=== PATIENT | male | born 1960 | race Caucasian/White ===

== ENCOUNTER 2021-01-07 19:10 | Day surgery (SDC) | payer MEDICAID ==
[2021-01-07] MEDS ORDERED: Sodium Chloride 0.9% 10 ML Syringe FLUSH PRN ×2 (19:25→20:06)
[2021-01-07] MEDS ORDERED: Sodium Chloride 0.9% 2.5 ML Syringe FLUSH PRN ×2 (19:25→20:06)
[2021-01-07] MEDS ORDERED: Sodium Chloride 0.9% 10 ML SDV IV PRN (20:06)
[2021-01-07] MEDS ORDERED: Lactated Ringers 1,000 ML IV SCH (20:15)
--- NOTE | 2021-01-07 20:15 | PCM.HP.2 ---
H&P History of Present Illness - General Date of Service: 01/07/21 Admit Problem/Dx: Admission Diagnosis/Problem Admission Diagnosis/Problem Food impaction of esophagus Source of Information: Patient History Limitations: Reports: No Limitations - History of Present Illness Initial Comments - Free Text/Narative: Patient is a 60 year old male who presented with a food impaction of the esophagus. He was eating a steak sandwich yesterday when he felt a piece of the food become stuck in his esophagus. He states that he has been having progressively worsening dysphagia for some time now. The food always "goes down or I throw it up." It is dysphagia to food and not liquids. 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 He denies ever having issues with heartburn. Throat Pain Score (Numeric/FACES): 3 - Related Data Allergies/Adverse Reactions: Allergies Allergy/AdvReac Type Severity Reaction Status Date / Time bee pollen Allergy Hives Verified 01/07/21 19:23 egg Allergy Airway Verified 01/07/21 20:04 Tightness Penicillins Allergy Airway Verified 01/07/21 19:23 Tightness Poultry Allergy Airway Verified 01/07/21 19:23 Tightness Home Medications: Home Meds . [No Known Home Meds] 01/07/21 [History] Past Medical History Respiratory History: Reports: Asthma - Past Surgical History GI Surgical History: Reports: Colonoscopy Social & Family History - Family History Family Medical History: No Pertinent Family History - Tobacco Use Tobacco Use Status *Q: Never Tobacco User Second Hand Smoke Exposure: No - Alcohol Use Alcohol Use in Last Twelve Months: No Alcohol Use Frequency: Not Used in Over 1 Year Alcohol Use Comment: History of alcohol abuse - Recreational Drug Use Recreational Drug Use: No H&P Review of Systems - Review of Systems: Review Of Systems: Comprehensive ROS is negative, except as noted in HPI. Exam - Exam Exam: See Below - Vital Signs Vital Signs: Last Vital Signs Temp 35.8 C L 01/07/21 19:16 Pulse 82 01/07/21 19:16 Resp 14 01/07/21 19:16 BP 146/94 H 01/07/21 19:16 Pulse Ox 98 01/07/21 19:16 Weight: 65.771 kg - Exam General: Alert, Oriented HEENT: Conjunctiva Clear, Nares Patent, Posterior Pharynx Clear Neck: Supple, Trachea Midline Lungs: Clear to Auscultation, Normal Respiratory Effort Cardiovascular: Regular Rate, Regular Rhythm GI/Abdominal Exam: Soft, Non-Tender, No Distention, No Mass Sepsis Event Note - Focused Exam Vital Signs: Vital Signs Temp Pulse Resp BP Pulse Ox 01/07/21 19:16 35.8 C L 82 14 146/94 H 98 - Problem List (1) Food impaction of esophagus SNOMED Code(s): 357634279 ICD Code: T18.128A - FOOD IN ESOPHAGUS CAUSING OTHER INJURY, INITIAL ENCOUNTER Status: Acute Current Visit: Yes Problem List Initiated/Reviewed/Updated: Yes Orders Last 24hrs: Active Orders 24 hr Category Date Time Status Patient Status [ADT] Routine ADT 01/07/21 20:06 Ordered Antiembolic Devices [RC] PER UNIT ROUTINE Care 01/07/21 20:07 Ordered Verify Patient Consent Obtain [RC] ASDIRECTED Care 01/07/21 20:06 Ordered CBC W/O DIFF,HEMOGRAM [HEME] Stat Lab 01/07/21 20:06 Ordered CMP [COMPREHENSIVE METABOLIC PN,CMP] [CHEM] Stat Lab 01/07/21 20:06 Ordered CORONAVIRUS COVID-19 LESLY [MOLEC] Stat Lab 01/07/21 19:33 Received Lactated Ringers [Ringers, Lactated] 1,000 ml Med 01/07/21 20:15 Ordered IV ASDIRECTED Sodium Chloride 0.9% [Normal Saline] Med 01/07/21 20:06 Ordered 10 ml IV ASDIRECTED PRN Sodium Chloride 0.9% [Saline Flush] Med 01/07/21 19:25 Active 10 ml FLUSH ASDIRECTED PRN Sodium Chloride 0.9% [Saline Flush] Med 01/07/21 20:06 Ordered 10 ml FLUSH ASDIRECTED PRN Sodium Chloride 0.9% [Saline Flush] Med 01/07/21 19:25 Active 2.5 ml FLUSH ASDIRECTED PRN Sodium Chloride 0.9% [Saline Flush] Med 01/07/21 20:06 Ordered 2.5 ml FLUSH ASDIRECTED PRN Peripheral IV Insertion Adult [OM.PC] Routine Oth 01/07/21 20:06 Ordered Saline Lock Insert [OM.PC] Stat Oth 01/07/21 19:25 Ordered Sequential Compression Device [OM.PC] Routine Oth 01/07/21 20:06 Ordered Resuscitation Status Routine Resus Stat 01/07/21 20:06 Ordered Medication Orders Lactated Ringer's (Ringers, Lactated) 1,000 mls @ 1,000 mls/hr IV ASDIRECTED JENNIFER Sodium Chloride (Sodium Chloride 0.9% 10 Ml Syringe) 10 ml FLUSH ASDIRECTED PRN PRN Reason: Keep Vein Open Sodium Chloride (Sodium Chloride 0.9% 2.5 Ml Syringe) 2.5 ml FLUSH ASDIRECTED PRN PRN Reason: Keep Vein Open Assessment/Plan Comment:: I explained to the patient that he needs to undergo an EGD with food disimpaction and possible biopsy. We discussed the procedure, the expected operative and post-operative course as well as the risks including bleeding or perforation. He verbalized understanding and wishes to proceed. Will give him a 1L bolus of fluids since he hasn't drank since yesterday. Will check CBC, CMP and COVID prior to procedure. Will also get an EKG.
[2021-01-07 20:21] LABS: BLOOD UREA NITROGEN,BUN 22 mg/dL (7.0-18.0); CARBON DIOXIDE,CO2 27.7 mmol/L (21.0-32.0); CHLORIDE,CL 102 mmol/L (98-107); GLUCOSE RANDOM 90 mg/dL (74-106); SODIUM,NA 142 mmol/L (136-148)
[2021-01-07] MEDS ORDERED: fentaNYL 100 MCG/2 ML SDV ONE (20:21)
[2021-01-07] MEDS ORDERED: Propofol 200 MG/20 ML SDV ONE (20:21)
[2021-01-07] MEDS ORDERED: Midazolam 1 MG/ML 2 ML SDV ONE (20:21)
[2021-01-07] MEDS ORDERED: Lidocaine 2% 5 ML SDV ONE (20:21)
[2021-01-07] MEDS ORDERED: Rocuronium Bromide 50 MG/5 ML Syringe ONE (20:21)
[2021-01-07] MEDS ORDERED: Ondansetron 4 MG/2 ML SDV ONE (20:21)
[2021-01-07] MEDS ORDERED: Sugammadex Sodium 200 MG/2 ML VIAL ONE (20:21)
[2021-01-07] MEDS ORDERED: Dexamethasone 4 MG/ML 5 ML MDV ONE (20:21)
--- NOTE | 2021-01-07 21:26 | PCM.OPNOTE ---
- General Post-Op/Procedure Note Date of Surgery/Procedure: 01/07/21 Operative Procedure(s): EGD with food disimpaction and biopsy Findings: Circumferential esophageal stricture at 15 cm from the teeth Pre Op Diagnosis: Food impaction of esophagus Post-Op Diagnosis: Food impaction of esophagus, esophageal stricture Anesthesia Technique: General ET Tube Primary Surgeon: Fatou Turner Condition: Stable
--- NOTE | 2021-01-07 21:42 | PCM.PREANE ---
Preanesthetic Assessment - Procedure Proposed Procedure: EGD with removal of foreign body - Anesthesia/Transfusion/Family Hx Anesthesia History: Unknown - Review of Systems General: No Symptoms Pulmonary: Cough (history of asthma) Cardiovascular: No Symptoms Gastrointestinal: Difficulty Swallowing Neurological: No Symptoms Other: Reports: None - Physical Assessment NPO Status Date: 01/06/21 NPO Status Time: 20:00 Vital Signs: Last Vital Signs Temp 96.5 F L 01/07/21 19:16 Pulse 82 01/07/21 19:16 Resp 14 01/07/21 19:16 BP 146/94 H 01/07/21 19:16 Pulse Ox 98 01/07/21 19:16 Height: 5 ft 8 in Weight: 65.771 kg ASA Class: 2E Mental Status: Alert & Oriented x3 Airway Class: Mallampati = 3 Dentition: Reports: Broken Tooth/Teeth (chipped top right front tooth) Thyro-Mental Finger Breadths: 3 Mouth Opening Finger Breadths: 3 ROM/Head Extension: Full Lungs: Clear to Auscultation, Normal Respiratory Effort Cardiovascular: Regular Rate, Regular Rhythm, No Murmurs - Lab Values: Laboratory Last Values WBC 9.94 K/uL (4.0-11.0) 01/07/21 19:32 RBC 5.75 M/uL (4.50-5.90) 01/07/21 19:32 Hgb 17.1 g/dL (13.0-17.0) H 01/07/21 19:32 Hct 49.8 % (38.0-50.0) 01/07/21 19:32 MCV 86.6 fL (80.0-98.0) 01/07/21 19:32 MCH 29.7 pg (27.0-32.0) 01/07/21 19:32 MCHC 34.3 g/dL (31.0-37.0) 01/07/21 19:32 RDW Std Deviation 41.0 fl (28.0-62.0) 01/07/21 19:32 RDW Coeff of Lucy 13 % (11.0-15.0) 01/07/21 19:32 Plt Count 357 K/uL (150-400) 01/07/21 19:32 MPV 9.50 fL (7.40-12.00) 01/07/21 19:32 Nucleated RBC % 0.0 /100WBC 01/07/21 19:32 Nucleated RBCs # 0 K/uL 01/07/21 19:32 Sodium 142 mmol/L (136-148) 01/07/21 19:32 Potassium 4.0 mmol/L (3.5-5.1) 01/07/21 19:32 Chloride 102 mmol/L (98-107) 01/07/21 19:32 Carbon Dioxide 27.7 mmol/L (21.0-32.0) 01/07/21 19:32 BUN 22 mg/dL (7.0-18.0) H 01/07/21 19:32 Creatinine 1.1 mg/dL (0.8-1.3) 01/07/21 19:32 Est Cr Clr Drug Dosing 67.27 mL/min 01/07/21 19:32 Estimated GFR (MDRD) > 60.0 ml/min 01/07/21 19:32 Glucose 90 mg/dL (74-106) 01/07/21 19:32 Calcium 10.7 mg/dL (8.5-10.1) H 01/07/21 19:32 Total Bilirubin 0.9 mg/dL (0.2-1.0) 01/07/21 19:32 AST 26 IU/L (15-37) 01/07/21 19:32 ALT 49 IU/L (14-63) 01/07/21 19:32 Alkaline Phosphatase 103 U/L (46-116) 01/07/21 19:32 Total Protein 8.7 g/dL (6.4-8.2) H 01/07/21 19:32 Albumin 4.8 g/dL (3.4-5.0) 01/07/21 19:32 Globulin 3.9 g/dL (2.6-4.0) 01/07/21 19:32 Albumin/Globulin Ratio 1.2 (0.9-1.6) 01/07/21 19:32 SARS-CoV-2 RNA (LESLY) NEGATIVE (NEGATIVE) 01/07/21 19:33 - Allergies Allergies/Adverse Reactions: Allergies Allergy/AdvReac Type Severity Reaction Status Date / Time bee pollen Allergy Hives Verified 01/07/21 19:23 egg Allergy Airway Verified 01/07/21 20:04 Tightness Penicillins Allergy Airway Verified 01/07/21 19:23 Tightness Poultry Allergy Airway Verified 01/07/21 19:23 Tightness - Acknowledgements Anesthesia Type Planned: General Anesthesia (ETT) Pt an Appropriate Candidate for the Planned Anesthesia: Yes Alternatives and Risks of Anesthesia Discussed w Pt/Guardian: Yes Pt/Guardian Understands and Agrees with Anesthesia Plan: Yes PreAnesthesia Questionnaire Respiratory History: Reports: Asthma - Past Surgical History GI Surgical History: Reports: Colonoscopy - SUBSTANCE USE Tobacco Use Status *Q: Never Tobacco User Second Hand Smoke Exposure: No Recreational Drug Use History: No - HOME MEDS Home Medications: Home Meds Pantoprazole [ProTONIX] 40 mg PO DAILY #30 tab.cr 01/07/21 [Rx] - CURRENT (IN HOUSE) MEDS Current Meds: Current Medications Discontinued Medications Dexamethasone (Dexamethasone 4 Mg/Ml 5 Ml Mdv) Confirm Administered Dose 20 mg .ROUTE .STK-MED ONE Stop: 01/07/21 20:22 Fentanyl (Fentanyl 100 Mcg/2 Ml Sdv) Confirm Administered Dose 100 mcg .ROUTE .STK-MED ONE Stop: 01/07/21 20:22 Lactated Ringer's (Ringers, Lactated) 1,000 mls @ 1,000 mls/hr IV ASDIRECTED JENNIFER Last Admin: 01/07/21 20:08 Dose: 1,000 mls/hr Documented by: Lidocaine (Lidocaine 2% 5 Ml Sdv) Confirm Administered Dose 5 ml .ROUTE .STK-MED ONE Stop: 01/07/21 20:22 Midazolam HCl (Midazolam 1 Mg/Ml 2 Ml Sdv) Confirm Administered Dose 2 mg .ROUTE .STK-MED ONE Stop: 01/07/21 20:22 Ondansetron HCl (Ondansetron 4 Mg/2 Ml Sdv) Confirm Administered Dose 4 mg .ROUTE .STK-MED ONE Stop: 01/07/21 20:22 Propofol (Propofol 200 Mg/20 Ml Sdv) Confirm Administered Dose 200 mg .ROUTE .STK-MED ONE Stop: 01/07/21 20:22 Rocuronium [place] (Rocuronium [place] 50 Mg/5 Ml Syringe) Confirm Administered Dose 50 mg .ROUTE .STK-MED ONE Stop: 01/07/21 20:22 Sodium Chloride (Sodium Chloride 0.9% 10 Ml Syringe) 10 ml FLUSH ASDIRECTED PRN PRN Reason: Keep Vein Open Sodium Chloride (Sodium Chloride 0.9% 2.5 Ml Syringe) 2.5 ml FLUSH ASDIRECTED PRN PRN Reason: Keep Vein Open Sodium Chloride (Sodium Chloride 0.9% 10 Ml Syringe) 10 ml FLUSH ASDIRECTED PRN PRN Reason: Keep Vein Open Sodium Chloride (Sodium Chloride 0.9% 2.5 Ml Syringe) 2.5 ml FLUSH ASDIRECTED PRN PRN Reason: Keep Vein Open Sodium Chloride (Sodium Chloride 0.9% 10 Ml Sdv) 10 ml IV ASDIRECTED PRN PRN Reason: IV Use Sugammadex Sodium (Sugammadex Sodium 200 Mg/2 Ml Vial) Confirm Administered Dose 200 mg .ROUTE .[facility] ONE Stop: 01/07/21 20:22
[2021-01-07] MEDS ORDERED: Pantoprazole 40 MG in Sodium Chloride 0.9% 10 ML IV ONE (21:44)
--- NOTE | 2021-01-07 21:46 | PCM.POSTAN ---
POST ANESTHESIA ASSESSMENT - MENTAL STATUS Mental Status: Somnolent - VITAL SIGNS Vital Signs: Last Vital Signs Temp 96.5 F L 01/07/21 19:16 Pulse 82 01/07/21 19:16 Resp 14 01/07/21 19:16 BP 146/94 H 01/07/21 19:16 Pulse Ox 98 01/07/21 19:16 - RESPIRATORY Respiratory Status: Respiratory Rate WNL, Airway Patent (oral airway in place), O2 Saturation Stable, Supplemental Oxygen - CARDIOVASCULAR CV Status: Pulse Rate WNL, Blood Pressure Stable - GASTROINTESTINAL GI Status: No Symptoms - POST OP HYDRATION Hydration Status: Adequate & Stable
[2021-01-07] MEDS ORDERED: Albuterol 6.7 GM Inhaler INH ONE (21:50)
[2021-01-07] MEDS ORDERED: Albuterol 0.083% 2.5 MG/3 ML Neb Soln INH PRN (21:55)
--- NOTE | 2021-01-07 21:59 | PCM48HPAN ---
Post Anesthesia Note - EVALUATION WITHIN 48HRS OF ANESTHETIC Vital Signs in Normal Range: Yes Patient Participated in Evaluation: Yes Respiratory Function Stable: Yes Airway Patent: Yes Cardiovascular Function Stable: Yes Hydration Status Stable: Yes Pain Control Satisfactory: Yes Nausea and Vomiting Control Satisfactory: Yes Mental Status Recovered: Yes Vital Signs: Last Vital Signs Temp 97.5 F 01/07/21 21:30 Pulse 80 01/07/21 21:50 Resp 10 L 01/07/21 21:50 BP 126/48 L 01/07/21 21:50 Pulse Ox 95 01/07/21 21:50
[2021-01-07] MEDS ORDERED: Pantoprazole 40 MG Vial ONE (22:50)
--- NOTE | 2021-01-08 01:08 | OR ---
SURGEON: FATOU TURNER MD DATE OF PROCEDURE: 01/07/2021 PREOPERATIVE DIAGNOSIS: Food impaction of the esophagus. POSTOPERATIVE DIAGNOSES: Food impaction of the esophagus, esophageal stricture. PROCEDURE PERFORMED: Esophagogastroduodenoscopy with food disimpaction and biopsy. PRIMARY SURGEON: Fatou Turner MD ANESTHESIA: General endotracheal anesthesia. FLUIDS: See Anesthesia record. EBL: Zero. FINDINGS: A stricture in the proximal esophagus, 15 cm from the teeth. COMPLICATIONS: None. INDICATIONS: The patient is a 60-year-old male who was eating steak yesterday, when it became impacted in his esophagus. He has tried conservative management at home. However, the patient was unable to get to unobstruct. He went to an outside hospital. They did a basic workup and had him a transferred to our facility for endoscopic management. I met the patient in the emergency room. Labs were performed that showed some mild dehydration. The patient was unable to swallow his saliva. No crepitus was felt in the neck. The decision was made to proceed to the operating room for diagnostic EGD with food disimpaction and possible biopsy. I explained the procedure to the patient, the expected perioperative course, and the risks. He verbalized understanding and wishes to proceed. PROCEDURE IN DETAIL: The patient was brought into the OR and placed on the OR cart in supine position. A time-out was completed verifying the patient's name, age, date of , allergies, and procedure to be performed. General endotracheal anesthesia was induced. A bite block was placed in the patient's mouth. A well- lubricated endoscope was placed into the patient's mouth and advanced under direct visualization to the esophagus. Immediately upon entering the esophagus, a large food bolus was noted. I attempted to use some gentle irrigation and insufflation to move the food bolus along, but was unable to do so. A biopsy forceps and tri-prong grasper were then used to remove the food bolus from where it was impacted. A large chunk of the food was removed, and after this a second piece of the food was passed down into the stomach with gentle insufflation. I inspected the area of impaction. The patient had a tight circumferential stricture of the esophagus at 15 cm from the teeth. Several photographs of this were taken. I was then able to pass my scope safely to the second portion of duodenum. This appeared normal, and a photograph was taken. The scope was straightened out and fully withdrawn while examining the color, texture, anatomy, and integrity of the mucosa of the upper GI tract. The duodenum appeared normal. The scope was brought into the stomach and a photograph was taken of the pylorus and GE junction. Both appeared normal. The gastric mucosa appeared free of gross inflammation or ulceration. Biopsies were taken of the gastric antrum and sent to Pathology. The scope was brought into the distal esophagus and a photograph was taken of a normal-appearing Z-line. The remainder of the esophagus appeared normal. There was no evidence of perforation or ulceration at the level of the stricture in the proximal esophagus. I closely inspected the posterior pharynx, which appeared intact with no evidence of damage. The scope was removed, and the procedure was terminated. The patient was extubated and taken to PACU in stable condition. ENDOSCOPIC DIAGNOSES: Food impaction of the esophagus, esophageal stricture. RECOMMENDATIONS: We will have the patient stick to a liquid diet for the next 24 hours and then a soft diet for 5 days after that. I will place the patient on a PPI. We will likely refer him to GI for a stricturoplasty in the near future. FAUZIA / KELSI /[id number]
== END 2021-01-08 00:48 | disposition home or self-care (01) ==
LOC: MW.ED 19:10 → MW.SDS 20:06 → MW.MS 20:06 → MW.ED 20:41 → MW.SDS 01-08 00:48
PROVIDERS: ATTEND Surgery
DX: T18.128A Food in esophagus causing other injury, initial encounter (principal); K29.50 Unspecified chronic gastritis without bleeding; K22.2 Esophageal obstruction; J45.909 Unspecified asthma, uncomplicated; Z91.012 Allergy to eggs; Z91.030 Bee allergy status; Z88.0 Allergy status to penicillin; Z01.812 Encounter for preprocedural laboratory examination; Z20.822 Contact with and (suspected) exposure to COVID-19
CPT/HCPCS: 36415; 43239; 43247; 80053; 85027; 87635; 88305; 88342; A9270; C9113; J1100; J2250; J2405; J2704; J3010; J3490; J7120; 00731; U0002